=== PATIENT | male | born 1985 | race African-American/Black ===

== ENCOUNTER → 2016-11-10 | Outpatient (CLI) | payer OTHER ==
--- NOTE | 2016-11-12 21:44 | SLEEPCENT ---
DATE OF PROCEDURE: 11/10/2016 Nocturnal polysomnography was performed due to concern for the obstructive sleep apnea syndrome in this patient with a history of excessive somnolence and nonrestorative sleep. 8 hours and 46 minutes of data were reviewed. There were 439 minutes of sleep identified. Sleep latency was mildly prolonged at 20 minutes. Rapid eye movement (REM) latency was short at 74 minutes. Sleep architecture was good with 5 REM periods appreciated. Some fragmentation was seen early in the study but overall sleep efficiency was 84.7%. The patient's EKG showed a sinus rhythm with an average heart rate of 68 beats per minute. EEG showed some mild coarsening but no focal events and normal waveforms for wake and sleep. There were only 6 respiratory events identified of 10 seconds in duration or greater for an apnea-hypopnea index of 0.8. Snoring was, however, noted and snore-related arousals occurred 2.7 times per hour. There was some limb activity noted but no trains of events. Limb movement arousal index was 4.5. Remaining measures of sleep physiology were normal. IMPRESSION: Normal nocturnal polysomnography with snoring. RECOMMENDATION: Given the occurrence of arousals from snoring at a rate of 2.7 per hour, interventions to optimize upper airway tone should improve the snoring problem and with it the architecture of sleep. Should sleep symptoms persist, retesting has been shown more sensitive to identifying mild obstructive disease.
== END ==
LOC: M SLEEP 19:44
PROVIDERS: ATTEND Nurse Practitioner Adult Health
DX: R06.83 Snoring (principal)

== ENCOUNTER 2017-04-18 15:32 | Inpatient (IN) | payer OTHER ==
[~2017-04-18] VITALS: Ht 182.9 cm; Wt 90.7 kg
[2017-04-18] MEDS ORDERED: BUSP15TA47 PO (15:49)
[2017-04-18] MEDS ORDERED: TRAZ50TA11 PO (15:49)
[2017-04-18 17:52] LABS: MEAN CORPUSCULAR HEMOGLOBIN 32.2 pg (27.0-33.0); RED CELL DISTRIBUTION WIDTH 12.8 % (11.5-14.5)
[2017-04-18 18:14] LABS: ALBUMIN/GLOBULIN RATIO 1.08 (1.00-1.93); ALKALINE PHOSPHATASE 62 U/L (45-117); ALT/SGPT 70 U/L (12-78); ANION GAP 9 MEQ/L (8-16); AST/SGOT 22 U/L (15-37); BILIRUBIN,DIRECT 0.2 MG/DL (0.0-0.2); BILIRUBIN,TOTAL 0.6 MG/DL (0.2-1.0); BLOOD UREA NITROGEN 12 MG/DL (7-18); CALCIUM LEVEL 8.3 MG/DL (8.5-10.1); CARBON DIOXIDE LEVEL 26 MEQ/L (21-32); CHLORIDE LEVEL 106 MEQ/L (98-107); CREATININE FOR GFR 1.01 MG/DL (0.70-1.30); GLOMERULAR FILTRATION RATE > 60.0 (>60); GLUCOSE, FASTING 87 MG/DL (70-105); POTASSIUM SERUM 3.6 MEQ/L (3.5-5.1); SODIUM LEVEL 141 MEQ/L (136-145); TOTAL PROTEIN 7.7 GM/DL (6.4-8.2)
[2017-04-18 18:17] LABS: METHADONE URINE NEGATIVE (NEGATIVE)
[2017-04-18] MEDS ORDERED: MOM 30ML SUSPENSION UDC PO PRN (19:00)
[2017-04-18] MEDS ORDERED: OLANZapine ORAL DISINTEGRATING TAB 5MG PO PRN (19:00)
[2017-04-18] MEDS ORDERED: traZODone 50 MG TAB PO PRN (19:00)
[2017-04-18] MEDS ORDERED: MAALOX 30 ML SUSP *UDC PO PRN (19:00)
[2017-04-18] MEDS ORDERED: MELO15TA4 PO (19:16)
[2017-04-18 19:55] VITALS: BP 125/80
[2017-04-19 07:38] VITALS: BP 115/58
[2017-04-19] MEDS: hydrOXYzine 50 MG TAB PO PRN ×2 (09:26→16:54)
[2017-04-19] MEDS: MELOXICAM (MOBIC) 7.5 MG TAB PO SCH (09:26)
--- NOTE | 2017-04-19 13:47 | MHHPEPDOC ---
[facility] History & Physical History and Physical DATE OF ADMISSION: Apr 18, 2017 at 18:54 LEGAL STATUS AT ADMISSION: 9.39 CHIEF COMPLAINT: "I just didn't know what other choice to make". 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 He attended rehab in July and when he returned in Aug he received an Article 15 and a demotion. 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 He received the article 15 for partying with the guys (some underaged[place]. Pt has not drank since rehab. 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 He is attending [employer], has a counselor and is seen by the [facility] [place]. He reports having been contemplating suicide by alcohol poisoning over the past 2 weeks. He informed his counselor who had him evaluated by a at [facility] who sent him to our ED for Psych evaluation. Pt admitted for SI with plan and intent. he had gone so far as to change his beneficiaries. Pt says he knows many, many soldiers who have committed suicide over the past 5 years and longer because they did not see any other option. PSYCHIATRIC REVIEW OF SYSTEMS: Affective: guarded. Anxiety: moderate. Trauma: of mother to whom he was close, deployed in 2008 to [place] and around people who . He has never killed anyone. Psychosis: denies and none illicited. Personally: cooperative. PAST PSYCHIATRIC HISTORY: Prior Psychiatric Disorder: none, first psychiatric admission, has never seen a psychiatrist. Outpatient Treatment: none until Rehab in July, attends [facility]. Suicidal/Self injurious: denies Psychotropic Medication History: no med(s) previously. ALLERGIES: Please see below. FAMILY PSYCHIATRIC HISTORY: none. SOCIAL HISTORY: Early Relations/development: happy, good childhood. Sibling order: oldest, 1 younger sister Paternal relationships: intact until moms from [place], pt was 19 yo. Education: Occupational: Logistics (warehouse & motor pool) Legal: none Martial: with 2 young sons Economic: pay Supports: squad, [id number] who helped him through the last 2 weeks. Abuse/trauma: denies abuse, identifies mom's from [place] as a trauma, witnessed " around me" while in [place]. SUBSTANCE ABUSE HISTORY: started at age 15, became an habitual user in the . Would drink everyday, "all day" on the job. States " I was so good no one knew it". PAST MEDICAL/SURGICAL HISTORY: 1. right knee pain/torn meniscus 2. sleep apnea. Labs wnl, Toxicology negative. VITAL SIGNS: Temperature 98.7 pulse, 78 respiratory rate 16, blood pressure 125/ 80 pulse oximetry 99% on room air. MENTAL STATUS EXAMINATION: General appearance: Patient is a 32-year old male, who is tall, thin, by heritage, wears glasses, hair closely shaved, hygiene is good, eye contact fair. Speech: spontaneous and clear Thought processes: goal directed. Thought content: appropriate. Abstract reasoning and computation: good Description of associations: good. Description of abnormal or psychotic thoughts: denies psychotic symptoms, no evidence of roberth or hypomania. no mood instability or incongruence. States his thoughts of suicide are much less now than they were in the Ed. Judgment: poor Insight: poor Orientation: well oriented in all spheres. Recent and remote memory: intact Attention span and concentration: fair. Fund of knowledge: Full Mood: "depressed" Affect: anxious. DIAGNOSES: Major Depressive Disorder, severe, without psychotic features. Alcohol abuse disorder r/o ARNOLD ASSESSMENT: Pt was raised in [place]. His mother in 2004 from [place] but his father is alive and well. 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 He states he began using alcohol when he was 15. He drank all kinds of alcohol. He went to rehab in July but has remained clean and sober. His suicide plan included mixing dark and while liquors together until he could not drink anymore. Since leaving rehab in July pt reports mood that is up and down, currently a depressed mood. He feels irritable much of the time, his sleep is diminished at 2.5 hours a night. He states his appetite is "gone" and over 2 months he has lost 12 lbs. He feels guilt. He reports low energy. He has no interest in things. He has never been on antidepressants. Pt denies psychotic symptoms. No evidence of thought disorder. Pt denies PTSD related symptoms of hyper-startle, hypervigilance, numbing or intrusive thoughts. Pt does report anxiety and panic. He says seeing his family struggle is a trigger. "I'm not good unless they are all good and taken care of". He states his mind "automatically jumps to the worse case scenerio when he is problem solving. He identifies fear as a trigger for his two. Physical description as his anxiety becomes panic include SOB, legs are jumpy, shakes his hands a lot, sweats. Pt states he is learning that things take time to get done. He identifies fear as a trigger for him as well. Pt worries about finances a great deal especially with his loss of pay and his meager earnings. He is not sure how he can keep health care insurance of the children (2 boys). Pt denies being close to explosion while deployed. No TBI or concussion. PROBLEM LIST: 1. risk for suicide 2. Ineffective coping Plan, begin Effexor 37.5 mg x 2 days then 75 mg- chosen for it ability to reduce anxiety and depression. trazodone for sleep., continue close obs. Enc pt to participate in groups. INITIAL TREATMENT PLAN: 1. Patient was admitted on a . 2. Complete history was obtained. 3. With patients permission, family will be contacted and database will be expanded. 4. Patients medication regimen will be reviewed and changed accordingly. 5. Patient will be provided with protected environment. 6. Patient will be treated with individual, group, and milieu therapies. 7. Patient will receive supportive psych-education. 8. Discharge planning will commence immediately. 9. Outpatient follow-up treatment will be strongly recommended. 10. The initial treatment plan will focus initially on: * see problem list ESTIMATED LENGTH OF STAY: 7-10DAYS. TIME SPENT COUNSELING AND COORDINATING INITIAL CARE: 50 minutes. Laboratory Data 24H Labs Laboratory Tests 2 04/18/17 16:50: Anion Gap 9, Glomerular Filtration Rate > 60.0, Calcium Level 8.3L, Aspartate Amino Transf (AST/SGOT) 22, Alanine Aminotransferase (ALT/SGPT) 70, Alkaline Phosphatase 62, Total Bilirubin 0.6, Direct Bilirubin 0.2, Total Protein 7.7, Albumin 4.0, Albumin/Globulin Ratio 1.08, Thyroid Stimulating Hormone (TSH) 0.515, Salicylates Level < 1.7L, Urine Amphetamines Screen NEGATIVE, Urine Benzodiazepines Screen NEGATIVE, Urine Opiates Screen NEGATIVE, Urine Methadone Screen NEGATIVE, Acetaminophen Level < 2.0L, Urine Barbiturates Screen NEGATIVE , Urine Phencyclidine Screen NEGATIVE, Urine Cocaine Metabolite Screen NEGATIVE , Urine Cannabinoids Screen NEGATIVE, Ethyl Alcohol Level < 0.003 CBC/BMP Laboratory Tests 04/18/17 16:50 Red Blood Count 4.49, Mean Corpuscular Volume 92.0, Mean Corpuscular Hemoglobin 32.2, Mean Corpuscular Hemoglobin Concent 35.0, Red Cell Distribution Width 12.8 Medications Scheduled Buspirone HCl (Buspirone HCl) 15 Mg Tab, 15 MG PO BID, (Reported) Meloxicam (Meloxicam) 15 Mg Tab, 15 MG PO DAILY, (Reported) Trazodone HCl (Trazodone HCl) 50 Mg Tab, 50 TAB PO QHS, (Reported) Allergies Coded Allergies: No Known Allergies (Unverified , 04/18/17) Mayra Reyes Apr 19, 2017 13:47
--- NOTE | 2017-04-19 16:36 | HPE ---
DATE OF ADMISSION: 04/18/2017 Please refer to the psychiatric history and evaluation for further details on this admission. This examination and history is intended for medical issues which may need treatment, followup, or consult on this 32-year-old male. ALLERGIES: No known allergies. PRIMARY CARE PROVIDER: [facility]. 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 Ethyl alcohol (EtOH): He has a history of EtOH abuse, he is in the [employer] [facility] ([facility] program, he has had no alcohol for 8 months. He smokes one-half pack of cigarettes per day. Recreational drug use: None. PAST MEDICAL HISTORY: Temporomandibular joint (TMJ) disease. He has tried a bite block without any improvement. PAST SURGICAL HISTORY: Right shoulder times two. Right knee times two. He continues to have problems with the right knee. He has had a recent MRI and on 05/06/2017, he is scheduled to see orthopedics on post for the knee. HOME MEDICATIONS: - buspirone 15 mg by mouth twice a day - trazodone 50 mg by mouth nightly - meloxicam 15 mg by mouth daily LABORATORY STUDIES: WBC 5.0, hemoglobin 14.5, HCT 41.3, platelets 296. Electrolytes are normal. BUN and creatinine are 12 and 1.01. Calcium 8.3. Toxicology negative. REVIEW OF SYSTEMS: Ten systems review was done and other than chronic right knee pain and temporomandibular joint disease he had no complaints. OBJECTIVE: 32-year-old cooperative male in no acute distress. Height 72 inches, weight 93.1 kg. Blood pressure 141/92, pulse 87, respirations 16, temperature 98.1. Patient is alert and oriented times three. Pupils equal and reactive to light. Extraocular movements are intact. Cornea and sclerae clear. Conjunctivae is normal. No facial asymmetry. Pharynx, tongue, gums pink and moist. Tongue is midline. NECK: Supple without lymphadenopathy. No thyromegaly. No goiter. CHEST: Clear to auscultation without wheeze or retraction. HEART: Regular. ABDOMEN: Benign. Bowel sounds positive. GENITOURINARY/RECTAL: Not done. EXTREMITIES: Show equal strength. Full range of motion. No cyanosis, clubbing, or edema. Discomfort in the right knee with flexion and extension, no redness or swelling. Peripheral pulses equal and palpable bilaterally. SKIN: Warm and dry. IMPRESSION/PLAN: 1. Psychiatric plan per psychiatry. 2. Continue to followup with orthopedics as scheduled on 05/06/2017. Will continue meloxicam 15 mg by mouth daily. 3. Nicotine patch ordered. No other acute medical issues.
[2017-04-19 18:00] VITALS: BP 145/87
[2017-04-19] MEDS: traZODone 50 MG TAB PO PRN (21:10)
[2017-04-20 06:56] VITALS: BP 111/57
[2017-04-20] MEDS: MELOXICAM (MOBIC) 7.5 MG TAB PO SCH (08:29)
[2017-04-20] MEDS: NICOTINE 21MG/24HR 1 EA TRANSDERMAL TD SCH (15:42)
[2017-04-20] MEDS: VENLAFAXINE **XR** 37.5 MG CAPSULE PO SCH (15:44)
--- NOTE | 2017-04-20 15:45 | MHIPNPDOC ---
[facility] Progress Note Progress Note DATE OF SERVICE: 04/20/17 HISTORY: day3 of admission for SI. VITAL SIGNS: See below. NEW TEST RESULTS: na CURRENT MEDICATIONS: See below. MENTAL STATUS EXAMINATION: General appearance: Patient is a 32-year old male, who is tall, thin, by heritage, wears glasses, hair closely shaved, hygiene is good, eye contact fair. Speech: spontaneous and clear Thought processes: goal directed. Thought content: appropriate. Abstract reasoning and computation: good Description of associations: good. Description of abnormal or psychotic thoughts: denies psychotic symptoms, no evidence of roberth or hypomania. no mood instability or incongruence. States his thoughts of suicide are much less now than they were in the Ed. Judgment: fair/improviing Insight: fair/improving Orientation: well oriented in all spheres. Recent and remote memory: intact Attention span and concentration: fair. Fund of knowledge: Full Mood: "depressed" Affect: anxious. DIAGNOSES: Major Depressive Disorder, severe, without psychotic features. Alcohol abuse disorder r/o ARNOLD ASSESSMENT:pt has been attending programming and balancing this with rest. He met with CDP today and talked about the events leading to his Article 15. This included group sex as well as buying booze for under age service members, so a little bit more than he revealed yesterday. He is getting honest with himself. Support given for this. Pt is willing to try treatment with venlafaxine and risks and benefits discussed in detail. Questions answered. Also asked pt about Campral and he is willing to try this as well. Will observe for insomnia. Pt is eating and sleeping well. Getting along appropriately with peers and staff. No behavior challenges, attends well to hygiene. MANAGEMENT PLAN: begin venlafaxine xr at 37.5 mg and Campral at 666 mg tid. TIME SPENT: 25 minutes. Vital Signs Vital Signs Date Time Temp Pulse Resp B/P (MAP) Pulse Ox O2 Delivery O2 Flow Rate FiO2 04/20/17 06:56 97.6 70 16 111/57 (75) 04/19/17 18:00 Room Air 04/18/17 19:55 99 Current Medications Current Medications Acamprosate (Campral) 666 mg TID PO ; Start 04/20/17 at 16:00; Stop 05/20/17 at 15:59 Al Hydrox/Mg Hydrox/Simethicone (Mylanta) 30 ml Q4HP PRN PO HEARTBURN/ INDIGESTION; Start 04/18/17 at 19:00; Stop 05/18/17 at 18:59 Home Med (Med Rec Complete!) ASDIRECTED XX ; Start 04/18/17 at 19:30; Stop at 19:30; Status DC Hydroxyzine HCl (Atarax) 50 mg Q4HP PRN PO ANXIETY Last administered on 16:54; Start 04/18/17 at 19:00; Stop 05/18/17 at 18:59 Magnesium Hydroxide (Milk Of Magnesia) 30 ml DAILYPRN PRN PO CONSTIPATION; Start 04/18/17 at 19:00; Stop 05/18/17 at 18:59 Meloxicam (Mobic) 15 mg DAILY PO Last administered on 04/20/17 08:29; Start at 09:00; Stop 05/19/17 at 08:59 Nicotine (Nicoderm Cq 21mg) 1 patch DAILY TD Last administered on 04/20/17 15: 42; Start 04/20/17 at 09:00; Stop 05/20/17 at 08:59 Olanzapine (ZyPREXA ZYDIS) 5 mg Q4HP PRN PO AGITATION Last administered on 04/20/17 09:13; Start 04/18/17 at 19:00; Stop 05/18/17 at 18:59 Trazodone HCl (Desyrel) 50 mg QHSP PRN PO INSOMNIA Last administered on 22:04; Start 04/18/17 at 19:00; Stop 04/19/17 at 13:53; Status DC Trazodone HCl (Desyrel) 150 mg QHSP PRN PO INSOMNIA Last administered on 21:10; Start 04/19/17 at 14:00; Stop 05/19/17 at 13:59 Venlafaxine HCl (Effexor Xr) 37.5 mg QAM PO ; Start 04/20/17 at 09:00; Stop 05/20/17 at 08:59 Allergies Coded Allergies: No Known Allergies (Unverified , 04/18/17) Mayra Reyes Apr 20, 2017 15:45
[2017-04-20] MEDS: ACAMPROSATE CALCIUM 333 MG TABLET (CAMPRAL) PO SCH ×2 (16:35→21:25)
[2017-04-20 18:00] VITALS: BP 119/76
[2017-04-20] MEDS: traZODone 50 MG TAB PO PRN (21:24)
[2017-04-20] MEDS: hydrOXYzine 50 MG TAB PO PRN (21:25)
[2017-04-21 06:20] VITALS: BP 98/57
--- NOTE | 2017-04-21 08:50 | MHIPNPDOC ---
[facility] Progress Note Progress Note DATE OF SERVICE: 04/21/17 HISTORY: day 4 of admission for SI VITAL SIGNS: See below. NEW TEST RESULTS: na CURRENT MEDICATIONS: See below. MENTAL STATUS EXAMINATION: General appearance: Patient is a 32-year old male, who is tall, thin, by heritage, wears glasses, hair closely shaved, hygiene is good, eye contact fair. Speech: spontaneous and clear Thought processes: goal directed. Thought content: appropriate. Abstract reasoning and computation: good Description of associations: good. Description of abnormal or psychotic thoughts: denies psychotic symptoms, no evidence of roberth or hypomania. no mood instability or incongruence. States his thoughts of suicide are much less now than they were in the Ed. Judgment: fair/improviing Insight: fair/improving Orientation: well oriented in all spheres. Recent and remote memory: intact Attention span and concentration: fair. Fund of knowledge: Full Mood: "depressed" Affect: anxious. DIAGNOSES: Major Depressive Disorder, severe, without psychotic features. Alcohol abuse disorder r/o ARNOLD ASSESSMENT:pt denies side effects to Campral. Informed about insomnia and to let staff know if he is not able to sleep. He will be starting venlafaxine today. reminded to report s/s of allergic reaction. Enc him to attend programming as he has been doing. We are awaiting return call from [facility] about his meeting. He reports good appetite and sleep is good. MANAGEMENT PLAN: continue meds and observation status, monitor sleep as Campral may cause insomnia. [employer] will arrive tomorrow at 2:30 for meeting. TIME SPENT: 25 minutes. Vital Signs Vital Signs Date Time Temp Pulse Resp B/P (MAP) Pulse Ox O2 Delivery O2 Flow Rate FiO2 04/21/17 06:20 97.6 81 16 98/57 (71) 04/20/17 18:00 Room Air 04/18/17 19:55 99 Current Medications Current Medications Acamprosate (Campral) 666 mg TID PO Last administered on 04/20/17t 21:25; Start 04/20/17 at 16:00; Stop 05/20/17 at 15:59 Al Hydrox/Mg Hydrox/Simethicone (Mylanta) 30 ml Q4HP PRN PO HEARTBURN/ INDIGESTION; Start 04/18/17 at 19:00; Stop 05/18/17 at 18:59 Home Med (Med Rec Complete!) ASDIRECTED XX ; Start 04/18/17 at 19:30; Stop at 19:30; Status DC Hydroxyzine HCl (Atarax) 50 mg Q4HP PRN PO ANXIETY Last administered on 21:25; Start 04/18/17 at 19:00; Stop 05/18/17 at 18:59 Magnesium Hydroxide (Milk Of Magnesia) 30 ml DAILYPRN PRN PO CONSTIPATION; Start 04/18/17 at 19:00; Stop 05/18/17 at 18:59 Meloxicam (Mobic) 15 mg DAILY PO Last administered on 04/20/17 08:29; Start at 09:00; Stop 05/19/17 at 08:59 Nicotine (Nicoderm Cq 21mg) 1 patch DAILY TD Last administered on 04/20/17 15: 42; Start 04/20/17 at 09:00; Stop 05/20/17 at 08:59 Olanzapine (ZyPREXA ZYDIS) 5 mg Q4HP PRN PO AGITATION Last administered on 04/20/17 09:13; Start 04/18/17 at 19:00; Stop 05/18/17 at 18:59 Trazodone HCl (Desyrel) 50 mg QHSP PRN PO INSOMNIA Last administered on 22:04; Start 04/18/17 at 19:00; Stop 04/19/17 at 13:53; Status DC Trazodone HCl (Desyrel) 150 mg QHSP PRN PO INSOMNIA Last administered on 21:24; Start 04/19/17 at 14:00; Stop 05/19/17 at 13:59 Venlafaxine HCl (Effexor Xr) 37.5 mg QAM PO Last administered on 04/20/17 15:44; Start 04/20/17 at 09:00; Stop 05/20/17 at 08:59 Allergies Coded Allergies: No Known Allergies (Unverified , 04/18/17) Mayra Reyes Apr 21, 2017 08:50
[2017-04-21] MEDS: MELOXICAM (MOBIC) 7.5 MG TAB PO SCH (09:23)
[2017-04-21] MEDS: VENLAFAXINE **XR** 37.5 MG CAPSULE PO SCH (09:23)
[2017-04-21] MEDS: NICOTINE 21MG/24HR 1 EA TRANSDERMAL TD SCH (09:24)
[2017-04-21] MEDS: ACAMPROSATE CALCIUM 333 MG TABLET (CAMPRAL) PO SCH ×3 (09:24→20:02)
[2017-04-21 18:00] VITALS: BP 145/67
[2017-04-21] MEDS: hydrOXYzine 50 MG TAB PO PRN (20:01)
[2017-04-21] MEDS: traZODone 50 MG TAB PO PRN (21:22)
[2017-04-22 06:54] VITALS: BP 100/57
[2017-04-22] MEDS: VENLAFAXINE **XR** 37.5 MG CAPSULE PO SCH (08:34)
[2017-04-22] MEDS: MELOXICAM (MOBIC) 7.5 MG TAB PO SCH (08:34)
[2017-04-22] MEDS: NICOTINE 21MG/24HR 1 EA TRANSDERMAL TD SCH (08:35)
[2017-04-22] MEDS: ACAMPROSATE CALCIUM 333 MG TABLET (CAMPRAL) PO SCH ×3 (08:35→20:26)
--- NOTE | 2017-04-22 13:47 | MHIPNPDOC ---
[facility] Progress Note Progress Note DATE OF SERVICE: 04/22/17 HISTORY: day 4 of admission for homicidal thoughts. VITAL SIGNS: See below. NEW TEST RESULTS: none CURRENT MEDICATIONS: See below. MENTAL STATUS EXAMINATION: General appearance: Patient is a 32-year old male, who is tall, thin, by heritage, wears glasses, hair closely shaved, hygiene is good, eye contact fair. Speech: spontaneous and clear Thought processes: goal directed. Thought content: appropriate. Abstract reasoning and computation: good Description of associations: good. Description of abnormal or psychotic thoughts: denies psychotic symptoms, no evidence of roberth or hypomania. no mood instability or incongruence. States his thoughts of suicide are much less now than they were in the Ed. Judgment: fair/improving Insight: fair/improving Orientation: well oriented in all spheres. Recent and remote memory: intact Attention span and concentration: fair. Fund of knowledge: Full Mood: "depressed" Affect: anxious. DIAGNOSES: Major Depressive Disorder, severe, without psychotic features. Alcohol abuse disorder r/o ARNOLD ASSESSMENT:pt continues to adhere to unit protocols. Is very good about attending therapeutic programming. Reports improved mood and genuinely seems to be interested in doing the right thing and improving his situation. he denies active suicidal thoughts, no plans of suicide. He has concerns about the future and does not know how things but work out but he states he committed to doing the right thing and to taking care of his family. His behavior is consistent with this. So far he is tolerating Campral without insomnia. Good hygiene. Pt eats well and socializes appropriate. Keeps to himself mostly. BOBBY meeting this afternoon. MANAGEMENT PLAN: pt participated in BOBBY meeting today. Tuesday at 11 is the agreed discharge date and time. Pt has medications in his home that will need to be removed from prior prescriptions (antabuse and 50 mg trazodone). 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 TIME SPENT: 25 minutes. Vital Signs Vital Signs Date Time Temp Pulse Resp B/P (MAP) Pulse Ox O2 Delivery O2 Flow Rate FiO2 04/22/17 06:54 98.2 66 16 100/57 (71) Room Air 04/18/17 19:55 99 Current Medications Current Medications Acamprosate (Campral) 666 mg TID PO Last administered on 04/22/17 08:35; Start 04/20/17 at 16:00; Stop 05/20/17 at 15:59 Al Hydrox/Mg Hydrox/Simethicone (Mylanta) 30 ml Q4HP PRN PO HEARTBURN/ INDIGESTION; Start 04/18/17 at 19:00; Stop 05/18/17 at 18:59 Home Med (Med Rec Complete!) ASDIRECTED XX ; Start 04/18/17 at 19:30; Stop at 19:30; Status DC Hydroxyzine HCl (Atarax) 50 mg Q4HP PRN PO ANXIETY Last administered on 20:01; Start 04/18/17 at 19:00; Stop 05/18/17 at 18:59 Magnesium Hydroxide (Milk Of Magnesia) 30 ml DAILYPRN PRN PO CONSTIPATION; Start 04/18/17 at 19:00; Stop 05/18/17 at 18:59 Meloxicam (Mobic) 15 mg DAILY PO Last administered on 04/22/17 08:34; Start at 09:00; Stop 05/19/17 at 08:59 Nicotine (Nicoderm Cq 21mg) 1 patch DAILY TD Last administered on 04/22/17 08: 35; Start 04/20/17 at 09:00; Stop 05/20/17 at 08:59 Olanzapine (ZyPREXA ZYDIS) 5 mg Q4HP PRN PO AGITATION Last administered on 04/20/17 09:13; Start 04/18/17 at 19:00; Stop 05/18/17 at 18:59 Trazodone HCl (Desyrel) 50 mg QHSP PRN PO INSOMNIA Last administered on 22:04; Start 04/18/17 at 19:00; Stop 04/19/17 at 13:53; Status DC Trazodone HCl (Desyrel) 150 mg QHSP PRN PO INSOMNIA Last administered on 21:22; Start 04/19/17 at 14:00; Stop 05/19/17 at 13:59 Venlafaxine HCl (Effexor Xr) 37.5 mg QAM PO Last administered on 04/22/17t 08:34; Start 04/20/17 at 09:00; Stop 05/20/17 at 08:59 Allergies Coded Allergies: No Known Allergies (Unverified , 04/18/17) Mayra Reyes Apr 22, 2017 13:47
[2017-04-22] MEDS: hydrOXYzine 50 MG TAB PO PRN ×2 (16:10→20:26)
[2017-04-22 18:00] VITALS: BP 120/60
[2017-04-22] MEDS: traZODone 50 MG TAB PO PRN (22:11)
[2017-04-23 06:00] VITALS: BP 108/50
[2017-04-23] MEDS: VENLAFAXINE **XR** 75MG CAPSULE PO SCH (08:22)
[2017-04-23] MEDS: ACAMPROSATE CALCIUM 333 MG TABLET (CAMPRAL) PO SCH ×3 (08:22→20:49)
[2017-04-23] MEDS: MELOXICAM (MOBIC) 7.5 MG TAB PO SCH (08:22)
[2017-04-23] MEDS: NICOTINE 21MG/24HR 1 EA TRANSDERMAL TD SCH (08:23)
[2017-04-23] MEDS: hydrOXYzine 50 MG TAB PO PRN ×2 (16:14→20:49)
[2017-04-23 18:00] VITALS: BP 136/78
[2017-04-23] MEDS: traZODone 50 MG TAB PO PRN (22:18)
[2017-04-24 06:46] VITALS: BP 106/59
[2017-04-24] MEDS: ACAMPROSATE CALCIUM 333 MG TABLET (CAMPRAL) PO SCH ×3 (09:15→21:20)
[2017-04-24] MEDS: MELOXICAM (MOBIC) 7.5 MG TAB PO SCH (09:15)
[2017-04-24] MEDS: VENLAFAXINE **XR** 75MG CAPSULE PO SCH (09:15)
[2017-04-24] MEDS: NICOTINE 21MG/24HR 1 EA TRANSDERMAL TD SCH (09:16)
[2017-04-24] MEDS: hydrOXYzine 50 MG TAB PO PRN ×2 (14:36→21:19)
[2017-04-24 18:00] VITALS: BP 139/77
[2017-04-24] MEDS: traZODone 50 MG TAB PO PRN (21:34)
[2017-04-25 06:38] VITALS: BP 87/46
[2017-04-25] MEDS ORDERED: ACAM0.05 PO (08:14)
[2017-04-25] MEDS ORDERED: HYDRO50TAB PO (08:14)
[2017-04-25] MEDS ORDERED: TRAZO50TA PO (08:14)
[2017-04-25] MEDS ORDERED: VENL75CA2 PO (08:14)
[2017-04-25] MEDS: MELOXICAM (MOBIC) 7.5 MG TAB PO SCH (09:02)
[2017-04-25] MEDS: VENLAFAXINE **XR** 75MG CAPSULE PO SCH (09:02)
[2017-04-25] MEDS: hydrOXYzine 50 MG TAB PO PRN (09:02)
[2017-04-25] MEDS: ACAMPROSATE CALCIUM 333 MG TABLET (CAMPRAL) PO SCH (09:02)
[2017-04-25] MEDS: NICOTINE 21MG/24HR 1 EA TRANSDERMAL TD SCH (09:02)
--- NOTE | 2017-04-25 11:56 | MHDSPDOC ---
[facility] Discharge Summary Discharge Summary DATE OF ADMISSION: Apr 18, 2017 at 18:54 DATE OF DISCHARGE: Apr 25, 2017 at 11:15 DISCHARGE DIAGNOSES: Major Depressive Disorder, severe, without psychotic features. 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 After some thought he was agreeable to beginning pharmacotherapy and was started on venlafaxine er for anxiety and depression. He became more trusting as time went on and more open about sharing what had happened to him and his career. He completely understands who devastating this is on his family. He carries guilt over the events he participated in. HOSPITAL COURSE: pt was less and less suicidal in his thoughts while on the unit. After the 1st week he was able to see that this was not the end of the world, just the end of this career in his life. He is future focused and hopes to re-connect with his and children soon in [place]. He is able to verbalize reasons for living and acknowledges that his children need their father. He intends to be there for them. Omar attended every group, every day and was a stellar patient. He attended treatment planning meeting and also his BOBBY meeting last week. He feels ready for discharge and denies any desire to harm himself or take his life. He seems sincere in this. He states he will remain medication adherent and will keep appts with therapy as an outpatient [place]. 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 DISCHARGE ASSESSMENT: Pt appears motivated to do the correct thing and process out of the service and rejoin his family. He is willing to acknowledge that alcohol can be problematic for him. He states he has been to [facility]. He is embarrassed by the events that lead to this admission. He seems ready to make sure things of this nature never happen to him again. He has paid a high cost for his indiscretions. MENTAL STATUS EXAMINATION ON DISCHARGE: Patient is a 32-year old male, who is tall, medium frame, dark hair and skin, well groomed, fair eye contact. Speech is spontaneous Language skills are intact Thought processes including: goal directed. Thought content: appropriate. Abstract reasoning, and computation: good. Description of associations: good. Description of abnormal or psychotic thoughts: denies Judgment: fair Insight: fair Orientation to well oriented in all spheres. Recent and remote memory: intact Attention span and concentration: good. Fund of knowledge: Full Mood: euthymic Affect: congruent MEDICATIONS ON DISCHARGE: -venlafaxine er - anxiety and depression -Campral - abstinence from alcohol. -trazodone 150 mg - for insomnia - hydroxyzine 50 mg for anxiety. PLAN/FOLLOWUP ARRANGEMENTS: [facility] for meds and therapy, Substance abuse education, abstain from alcohol and all substances other than prescribed medication. Capt. is to make sure pts home is checked for meds that were prescribed by other providers and remove trazodone 50 mg. He was also going to make command aware that due to trazodone pt needs to have 8-9 hours of sleep and cannot work until 10 p.m. and be at formation by 6:30a.m. allowances for proper rest must be made. The amount of time spent in the coordination of care for this patient was approximately 29 minutes. Medical Status. 2. Continue to followup with orthopedics as scheduled on 05/06/2017. Will continue meloxicam 15 mg by mouth daily. Vital Signs/I&Os Vital Signs Date Time Temp Pulse Resp B/P (MAP) Pulse Ox O2 Delivery O2 Flow Rate FiO2 04/25/17 06:38 98.3 58 18 87/46 (60) Room Air Medications Scheduled Acamprosate Calcium (Acamprosate Calcium Dr) 333 Mg Tab, 666 MG PO TID for WITHDRAWAL SYMPTOMS for 7 Days, #14 Meloxicam (Meloxicam) 15 Mg Tab, 15 MG PO DAILY, (Reported) Venlafaxine HCl (Venlafaxine HCl ER) 75 Mg Cap, 75 MG PO QAM for ANXIETY for 7 Days, #7 Scheduled PRN Hydroxyzine HCl (Hydroxyzine HCl) 50 Mg Tab, 50 MG PO Q4HP PRN for ANXIETY for 7 Days, #42 Trazodone HCl (Trazodone HCl) 50 Mg Tab, 150 MG PO QHSP PRN for INSOMNIA for 7 Days, #21 take 3 tabs for 150 mg at bed time as needed. Allergies Coded Allergies: No Known Allergies (Unverified , 04/18/17) Mayra Reyes Apr 25, 2017 11:56
== END 2017-04-25 11:15 | disposition home or self-care (01) | DRG 885 ==
LOC: M ED 15:32 → M ED INP 18:54 → M PSY 19:42
PROVIDERS: ADMIT Psychiatry & Neurology Psychiatry; ATTEND Psychiatry & Neurology Psychiatry
DX: F32.2 Major depressive disorder, single episode, severe without psychotic features (principal); F10.10 Alcohol abuse, uncomplicated; F41.1 Generalized anxiety disorder; Z91.82 Personal history of military deployment; Z79.899 Other long term (current) drug therapy; F17.210 Nicotine dependence, cigarettes, uncomplicated; Z63.32 Other absence of family member; Z56.89 Other problems related to employment